=== PATIENT | female | born 1975 | race Caucasian/White ===

== ENCOUNTER 2016-03-31 09:05 | Emergency (ER) | payer OTHER ==
--- NOTE | 2016-03-31 09:18 | PDOC ---
History of Present Illness - General Chief Complaint: Injury Stated Complaint: FALL,HEAD ACHE Time Seen by Provider: 03/31/16 09:17 History Source: Patient, Old Records Exam Limitations: No Limitations - History of Present Illness Initial Comments: 03/31/16 09:23 40-year-old female with no significant past medical history presents the emergency department with complaints of headaches status post slip and fall on ice outside striking the back of her head. There was positive loss of consciousness. The patient denies injury to any other parts of her body. She has no numbness or tingling to her extremities. She complains of a mild headache right now. The headache is located in the frontal region as well as in the occipital region where she struck her head. The patient denies use of anti- coagulants or anti-platelet agents. Past History - Travel Traveled outside of the country in the last 30 days: No Close contact w/someone who was outside of country & ill: No - Past Medical History Allergies/Adverse Reactions: Allergies Allergy/AdvReac Type Severity Reaction Status Date / Time No Known Allergies Allergy Verified 03/31/16 09:17 Home Medications: Ambulatory Orders NK [No Known Home Medication] 03/31/16 Review of Systems - Review of Systems Able to Perform ROS?: Yes Is the patient limited E[place] proficient: No Constitutional: No: Symptoms Reported HEENTM: No: Symptoms Reported Respiratory: No: Symptoms reported Cardiac (ROS): No: Symptoms Reported ABD/GI: No: Symptoms Reported : No: Symptoms Reported Musculoskeletal: No: Symptoms Reported Integumentary: No: Symptoms Reported Neurological: Yes: See HPI, Headache. No: Numbness, Paresthesia *Physical Exam - Physical Exam Comments: 03/31/16 09:24 GENERAL: Well developed, well nourished. Awake and alert. No acute distress. HEENT: Normocephalic, there are no contusions appreciated. PERRLA, EOMI. No conjunctival pallor. Sclera are non-icteric. Moist mucous membranes. Oropharynx is clear. NECK: Supple. Full ROM. No JVD. No lymphadenopathy.There is no cervical spine or paraspinal tenderness to palpation; there is no crepitus or bony step offs appreciated. CARDIOVASCULAR: Regular rate and rhythm. No murmurs, rubs, or gallops. Distal pulses are 2+ and symmetric. PULMONARY: No evidence of respiratory distress. Lungs clear to auscultation bilaterally. No wheezing, rales or rhonchi. ABDOMINAL: Soft. Non-tender. Non-distended. No rebound or guarding. No organomegaly. Normoactive bowel sounds. MUSCULOSKELETAL Normal range of motion at all joints. No bony deformities or tenderness. No CVA tenderness.There is no ecchymosis appreciated on her extremities, buttocks, back. EXTREMITIES: No cyanosis. No clubbing. No edema. No calf tenderness. SKIN: Warm and dry. Normal capillary refill. No rashes. No jaundice. NEUROLOGICAL: Alert, awake, appropriate. Cranial nerves 2-12 intact. Grossly non-focal exam. PSYCHIATRIC: Cooperative. Good eye contact. Appropriate mood and affect. Medical Decision Making - Medical Decision Making 03/31/16 09:26 40-year-old female with complaints of headache status post mechanical fall with positive LOC. Differential diagnosis includes but is not limited to concussion, TBI, contusion of head. Plan: 1. CT head 2. Tylenol for pain 3. Observe and reevaluate 4. CT head is negative will discharge home with head trauma instructions; follow -up with primary care physician and return to the emergency department if symptoms persist, worsen, or new symptoms arise. 03/31/16 11:26 Addendum: CT scan of the head was negative. The patient is feeling improved. I' ve advised the patient to follow-up with her primary care physician within one week. She may take Tylenol or Motrin as needed for the pain. Return to the emergency department if symptoms persist, worsen, or new symptoms arise. *DC/Admit/Observation/Transfer Diagnosis at time of Disposition: Contusion of head, Concussion - Discharge Dispostion Disposition: HOME Condition at time of disposition: Stable Admit: No - Patient Instructions Additional Instructions: You have a mild concussion. The CT scan of your head is negative for acute traumatic injury. Please take Tylenol or Motrin as needed for pain. Please follow-up with your primary care physician within 3-5 days. He may return to the emergency department if your symptoms persist, worsen, or new symptoms arise.
[2016-03-31 09:22] VITALS: BP 137/98; PULSE 84; TEMP 98; BMI 30.2
[2016-03-31] MEDS ORDERED: ACETAMINOPHEN 500 MG TABLET (FP) PO ONE (09:27)
[2016-03-31] MEDS ORDERED: ACETAMINOPHEN 325 MG TABLET (FP) ONE (09:31)
[2016-03-31 09:41] LABS: URINE APPEARANCE Clear; URINE BILIRUBIN Negative (NEGATIVE); URINE BLOOD TRACE (NEGATIVE); URINE COLOR YELLOW; URINE GLUCOSE (UA) Negative (NEGATIVE); URINE KETONE Negative (NEGATIVE); URINE LEUK ESTERASE Negative (NEGATIVE); URINE NITRITE Negative (NEGATIVE); URINE PROTEIN Negative (NEGATIVE); URINE UROBILINOGEN 0.2 E.U/dl (0.2-1.0)
[2016-03-31 13:17] LABS: URINE RBC 0-3 /hpf (0-3)
== END 2016-03-31 11:48 | disposition home or self-care (01) ==
LOC: FER 09:05
DX: F07.81 Postconcussional syndrome (principal); G44.309 Post-traumatic headache, unspecified, not intractable; S00.93XA Contusion of unspecified part of head, initial encounter; W00.9XXA Unspecified fall due to ice and snow, initial encounter; Y93.89 Activity, other specified; Y92.9 Unspecified place or not applicable
CPT/HCPCS: 70450-TC; 81003; 81015; 84703; 99283-25